=== PATIENT | male | born 1965 | race Caucasian/White ===

== ENCOUNTER 2018-06-15 09:15 | Emergency (ER) | payer SELFPAY ==
[~2018-06-15] VITALS: Ht 175.3 cm; Wt 97.3 kg
[2018-06-15] MEDS ORDERED: 0.9% SODIUM CHLORIDE 5 ML NEB SOLUTION NEB ONE (09:52)
[2018-06-15] MEDS ORDERED: IPRATROPIUM BROMIDE 0.5 MG/2.5 ML NEB SOLUTION NEB ONE ×2 (10:00→10:30)
[2018-06-15] MEDS ORDERED: ALBUTEROL SULFATE 2.5 MG/0.5 ML NEB SOLUTION NEB ONE ×2 (10:00→10:30)
[2018-06-15] MEDS ORDERED: MethylPREDNISolone SOD SUCC 125 MG/2 ML VIAL IVP ONE (10:00)
[2018-06-15] MEDS ORDERED: ALBUTEROL SULFATE/IPRATROPIUM 100-20 MCG/SPRAY 4 GM INHALER IH ONE (12:00)
[2018-06-15 13:15] VITALS: BP 156/93
== END 2018-06-15 13:19 | disposition home or self-care (01) ==
LOC: EMS 09:17
DX: J44.9 Chronic obstructive pulmonary disease, unspecified (principal); F15.90 Other stimulant use, unspecified, uncomplicated; Z87.891 Personal history of nicotine dependence
CPT/HCPCS: 71045; 94640; 96374; 99285; J2930; J7613

== ENCOUNTER 2018-06-25 10:22 | Emergency (ER) | payer MEDICAID ==
[~2018-06-25] VITALS: Ht 177.8 cm; Wt 97.3 kg
[2018-06-25] MEDS ORDERED: ALBUTEROL SULFATE 5 MG/ML 20 ML NEB SOLN [BULK] NEB ONE (11:15)
[2018-06-25] MEDS ORDERED: IPRATROPIUM BROMIDE 0.5 MG/2.5 ML NEB SOLUTION NEB ONE (11:15)
[2018-06-25] MEDS ORDERED: 0.9% SODIUM CHLORIDE 5 ML NEB SOLUTION NEB ONE (11:22)
[2018-06-25] MEDS ORDERED: ALBUTEROL SULFATE/IPRATROPIUM 100-20 MCG/SPRAY 4 GM INHALER IH ONE (11:30)
[2018-06-25] MEDS ORDERED: FLUTICASONE PROPIONATE HFA 110 MCG/PUFF 12 GM INHALER IH ONE (11:30)
[2018-06-25] MEDS ORDERED: PredniSONE 20 MG TABLET PO ONE (11:30)
[2018-06-25 14:06] VITALS: BP 130/74
== END 2018-06-25 14:09 | disposition home or self-care (01) ==
LOC: EMS 10:24
DX: J44.9 Chronic obstructive pulmonary disease, unspecified (principal); F41.9 Anxiety disorder, unspecified; I50.9 Heart failure, unspecified; Z87.891 Personal history of nicotine dependence; F15.90 Other stimulant use, unspecified, uncomplicated
CPT/HCPCS: 94644; 99285; J7512; J7611; J3535